=== PATIENT | female | born 1990 | race African-American/Black ===

== ENCOUNTER 2021-01-16 18:15 | Emergency (ER) | payer BC, SELFPAY ==
--- NOTE | ~2021-01-16 | CT_ITS ---
EXAMINATION: CT abdomen pelvis w con DATE: 01/16/2021 20:32 INDICATION: Abdominal pain for 4 days TECHNIQUE: Computed tomography (CT) of the abdomen and pelvis was performed with 100 cc Omnipaque 350 intravenous contrast. The dose-length product was 165.45 mGy-cm. Automated exposure control and iter ative reconstruction technique were employed. COMPARISON: None. FINDINGS: Lung bases unremarkable. Heart size normal. No significant vascular abnormality. No lymphad enopathy. The liver, spleen, pancreas, adrenal glands and kidneys are unremarkable. Gallbladder is present. Non obstructive bowel gas pattern. No free air. Moderate free fluid in the pelvis. There is an IUD in exp ected position. The uterus appears enlarged and hypovascular there are small left ovarian cysts, larg est measuring 1.9 cm. No evidence for abscess. No acute osseous abnormality. IMPRESSION: 1. Enlarged heterogeneous hypovascular uterus containing IUD in expected position. Moderate free flui d in the pelvis. Consider pelvic inflammatory disease in the appropriate clinical setting. No abscess identified. 2: Left ovarian cysts, largest measuring 1.9 cm. Reviewed, dictated and finalized at location A. [facility] IMPRESSION: 1. Enlarged heterogeneous hypovascular uterus containing IUD in expected positi on. Moderate free fluid in the pelvis. Consider pelvic inflammatory disease in the appropriate clinical setting. No abscess identified. 2: Left ovarian cysts, largest measuring 1.9 cm.
[2021-01-16 18:18] VITALS: BP 115/65; PULSE 68; RESP 14; TEMP 36.9; O2SAT 99
--- NOTE | 2021-01-16 18:30 | ED.ABDPAIN ---
HPI - Abdominal Pain General Chief Complaint: Abdominal Pain <Karla Cannon MD - Last Filed: 01/16/21 19:02> Stated Complaint: abd pain <Karla Cannon MD - Last Filed: 01/16/21 19:02> Time Seen by Provider: 01/16/21 18:21 <Karla Cannon MD - Last Filed: 01/16/21 19:02> Source: patient <Karla Cannon MD - Last Filed: 01/16/21 19:02> Mode of arrival: ambulatory <Karla Cannon MD - Last Filed: 01/16/21 19:02> Limitations: no limitations <Karla Cannon MD - Last Filed: 01/16/21 19:02> History of Present Illness HPI narrative: This is a 30 year old female who presents for evaluation of midabdominal pain. She states her pain has been constant and it has been present for 3-4 days. Her pain is worse with eating. She has associated nausea and body ache. She denies vomiting, diarrhea, fever. She denies having similar pain in the past. She has not taken anything for pain. She rates her pain 10/10. <Karla Cannon MD - Last Filed: 01/16/21 19:02> Radiation: back <Karla Cannon MD - Last Filed: 01/16/21 19:02> Related Data Home Medications: Home Medications Medication Instructions Recorded Confirmed albuterol 90 mcg INHALATION PRN 01/16/21 01/16/21 <Karla Cannon MD - Last Filed: 01/16/21 19:02> Allergies/Adverse Reactions: Allergies Allergy/AdvReac Type Severity Reaction Status Date / Time No Known Allergies Allergy Verified 01/16/21 18:16 <Karla Cannon MD - Last Filed: 01/16/21 19:02> Review of Systems Review of Systems: All systems reviewed & are unremarkable except as noted in HPI and below <Karla Cannon MD - Last Filed: 01/16/21 19:02> Constitutional: Constitutional: Denies chills and Denies fever(s) <Karla Cannon MD - Last Filed: 01/16/21 19:02> Cardiovascular: Cardiovascular: Denies chest pain <Karla Cannon MD - Last Filed: 01/16/21 19:02> Respiratory: Respiratory: Denies dyspnea <Karla Cannon MD - Last Filed: 01/16/21 19:02> Gastrointestinal: Gastrointestinal: Reports abdominal pain, Denies diarrhea, Reports nausea and Denies vomiting <Karla Cannon MD - Last Filed: 01/16/21 19:02> Musculoskeletal: Musculoskeletal: Reports back pain <Karla Cannon MD - Last Filed: 01/16/21 19:02> [facility] Past Medical History Medical History: Medical History (Updated 01/16/21 @ 19:02 by Karla Cannon MD) Asthma <Karla Cannon MD - Last Filed: 01/16/21 19:02> Surgical History Surgical History: Surgical History (Updated 01/16/21 @ 18:30 by Karla Cannon MD) No significant past surgical history <Karla Cannon MD - Last Filed: 01/16/21 19:02> Social History Social History: Social History (Updated 01/16/21 @ 18:30 by Karla Cannon MD) Alcohol use details: occasional Gender identity (if verbalized by the patient): Female <Karla Cannon MD - Last Filed: 01/16/21 19:02> Exam Const: General: alert <Karla Cannon MD - Last Filed: 01/16/21 19:02> Orientation/consciousness: patient oriented x3 <Karla Cannon MD - Last Filed: 01/16/21 19:02> Eyes: EOM: EOMs intact bilaterally <Karla Cannon MD - Last Filed: 01/16/21 19:02> Chest: Chest palpation & inspection: normal inspection of the chest <Karla Cannon MD - Last Filed: 01/16/21 19:02> Resp: Effort & Inspection: normal respiratory effort and no retractions <Karla Cannon MD - Last Filed: 01/16/21 19:02> Auscultation: clear to auscultation bilaterally <Karla Cannon MD - Last Filed: 01/16/21 19:02> Cardio: Rate: regular rate <Karla Cannon MD - Last Filed: 01/16/21 19:02> Rhythm: regular rhythm <Karla Cannon MD - Last Filed: 01/16/21 19:02> Heart sounds: no murmurs <Karla Cannon MD - Last Filed: 01/16/21 19:02> GI: GI Palp: Yes Soft to palpation, Yes Tenderness to palpation present (GI) (epigastric, periumbilic
[2021-01-16 18:45] LABS: Add Urine Microscopic? YES; Amorphous Sediment Urine Few; Appearance Urine Cloudy (Clear); Bacteria Urine Trace /hpf; Bilirubin Urine Negative (Negative); Blood Urine Negative (Negative); Color Urine Yellow (Yellow); Glucose Urine UA Negative (Negative); Ketones Urine 2+ mg/dL (Negative); Leukocyte Esterase Ur Negative LEU/UL (Negative); Mucus Urine Heavy /lpf; Nitrate Urine Negative (Negative); Protein Urine 1+ mg/dL (Negative); RBC Urine 0-2 /hpf (0-2); Specific Grav Ur 1.026 (1.001-1.035); Squamous Epithelial Cell Urine Many /hpf (Few); Urobilinogen Urine Negative mg/dL (<2.0); WBC Urine 0-3 /hpf
[2021-01-16 19:00] LABS: Basophils Percent Auto 0.4 % (0.2-1.2); Eosinophils Absolute Auto 0.1 K/mm3 (0-0.3); Eosinophils Percent Auto 1.3 % (0-4.4); Hematocrit 38.9 % (37.0-47.0); Hemoglobin 13.2 g/dL (12.0-15.0); Immature Granulocyte Absolute 0.01 K/mm3 (0.00-0.031); Immature Granulocyte Percent A 0.2 % (0-0.5); Lymphocytes Absolute Auto 1.03 K/mm3 (0.9-3.2); Lymphocytes Percent Auto 18.5 % (18.3-44.2); Mean Corpuscular HGB Conc 33.9 g/dl (32-36); Mean Corpuscular Hemoglobin 31.5 pg (26-34); Mean Corpuscular Volume 92.8 fl (80-100); Mean Platelet Volume 9.1 fl (7.4-10.4); Monocytes Absolute Auto 0.4 K/mm3 (0.1-0.6); Neutrophils Percent Auto 72.6 % (45.5-73.1); Platelet Count Result 179 k/mm3 (150-375); Red Blood Count 4.19 M/mm3 (4.2-5.4); Red Cell Distribution Width 11.9 % (11.5-14.5); White Blood Count 5.6 K/mm3 (4.5-10.0)
[2021-01-16] MEDS: KETOROLAC 15 MG/ML VIAL (*BKC) IV PUSH (19:01)
[2021-01-16] MEDS: ONDANSETRON INJ 4 MG/2 ML VIAL IV PUSH (19:01)
[2021-01-16 19:13] LABS: Alanine Aminotransferase 16 U/L (4-35); Albumin Level 4.1 g/dL (3.5-5.1); Alkaline Phosphatase 42 U/L (38-126); Anion Gap 4 mmol/L (8-16); Aspartate Amino Transferase 26 U/L (14-36); Bilirubin,Total 0.6 mg/dL (0.2-1.3); Blood Urea Nitrogen 12 mg/dL (7-17); Calcium 8.7 mg/dL (8.4-10.2); Carbon Dioxide 26 mmol/L (22-30); Chloride 109 mmol/L (98-107); Estimated CRCL calculation 85 ml/min; Estimated Glomerular Filt Rate > 60; Glucose 88 mg/dL (65-105); Lipase 30 U/L (23-300); Potassium 3.8 mmol/L (3.4-5.0); Sodium 139 mmol/L (137-145)
[2021-01-16 21:06] VITALS: BP 112/63; PULSE 65; RESP 16; TEMP 36.3; O2SAT 100
== END 2021-01-16 21:07 | disposition home or self-care (01) ==
PROVIDERS: Emergency Medicine; Emergency Provider Emergency Medicine
DX: R10.13 Epigastric pain (principal); J45.909 Unspecified asthma, uncomplicated; Z97.5 Presence of (intrauterine) contraceptive device; N83.202 Unspecified ovarian cyst, left side
CPT/HCPCS: 36415; 74177; 80053; 81001; 81025; 83690; 85025; 96374; 96375; 99284; J1885; J2405; Q9967

== ENCOUNTER 2021-02-03 08:34 | Emergency (ER) | payer BC, SELFPAY ==
[2021-02-03 08:35] VITALS: BP 101/74; PULSE 80; RESP 16; TEMP 36.1; O2SAT 100
[2021-02-03 09:08] LABS: Basophils Percent Auto 0.4 % (0.2-1.2); Eosinophils Absolute Auto 0.1 K/mm3 (0-0.3); Eosinophils Percent Auto 0.9 % (0-4.4); Hematocrit 38.5 % (37.0-47.0); Hemoglobin 13.1 g/dL (12.0-15.0); Lymphocytes Absolute Auto 1.76 K/mm3 (0.9-3.2); Lymphocytes Percent Auto 32.5 % (18.3-44.2); Mean Corpuscular Hemoglobin 31.4 pg (26-34); Mean Corpuscular Volume 92.3 fl (80-100); Monocytes Absolute Auto 0.4 K/mm3 (0.1-0.6); Monocytes Percent Auto 7.9 % (2.6-8.5); Neutrophils Absolute Auto 3.2 K/mm3 (1.3-6.7); Neutrophils Percent Auto 58.3 % (45.5-73.1); Platelet Count Result 205 k/mm3 (150-375); Red Blood Count 4.17 M/mm3 (4.2-5.4); Red Cell Distribution Width 11.9 % (11.5-14.5); White Blood Count 5.4 K/mm3 (4.5-10.0)
[2021-02-03 09:12] LABS: Add Urine Microscopic? YES; Appearance Urine Cloudy (Clear); Bacteria Urine Trace /hpf; Bilirubin Urine Negative (Negative); Blood Urine Negative (Negative); Color Urine Amber (Yellow); Glucose Urine UA Negative (Negative); Ketones Urine Trace mg/dL (Negative); Leukocyte Esterase Ur Trace LEU/UL (Negative); Mucus Urine Heavy /lpf; Nitrate Urine Negative (Negative); Protein Urine 1+ mg/dL (Negative); Specific Grav Ur 1.023 (1.001-1.035); Squamous Epithelial Cell Urine Many /hpf (Few); Urobilinogen Urine Negative mg/dL (<2.0); WBC Urine 0-3 /hpf
[2021-02-03 09:23] LABS: Alanine Aminotransferase 10 U/L (4-35); Albumin Level 4.4 g/dL (3.5-5.1); Alkaline Phosphatase 43 U/L (38-126); Anion Gap 6 mmol/L (8-16); Aspartate Amino Transferase 21 U/L (14-36); Bilirubin,Total 0.7 mg/dL (0.2-1.3); Blood Urea Nitrogen 8 mg/dL (7-17); Calcium 9.2 mg/dL (8.4-10.2); Carbon Dioxide 30 mmol/L (22-30); Chloride 105 mmol/L (98-107); Estimated CRCL calculation 83 ml/min; Estimated Glomerular Filt Rate > 60; Glucose 95 mg/dL (65-105); Lipase 30 U/L (23-300); Potassium 3.2 mmol/L (3.4-5.0); Sodium 141 mmol/L (137-145)
--- NOTE | 2021-02-03 09:52 | ED.NAVMDI ---
HPI - Nausea/Vomiting/Diarrhea General Chief complaint: Nausea/Vomiting/Diarrhea Stated complaint: NAUSEA FROM ABX Time Seen by Provider: 02/03/21 09:05 Source: patient Mode of arrival: ambulatory Limitations: no limitations History of Present Illness HPI Narrative: This is a 30-year-old female that presents the emergency department for nausea and vomiting x4 days. Reports she has been on antibiotics for BV and these have caused her to be very nauseous. Reports he has had several episodes of diarrhea as well. Denies fever, abdominal pain, or dysuria. Related Data Home Medications Medication Instructions Recorded Confirmed albuterol 90 mcg INHALATION PRN 01/16/21 01/16/21 albuterol sulfate INHALATION 02/03/21 02/03/21 bupropion HCl mg PO 02/03/21 doxycycline hyclate 02/03/21 fluticasone propion-salmeterol INHALATION 02/03/21 [Wixela Inhub] Allergies Allergy/AdvReac Type Severity Reaction Status Date / Time No Known Allergies Allergy Verified 02/03/21 08:54 Review of Systems Review of Systems: Narrative: CONSTITUTIONAL: Denies fever GASTROINTESTINAL: Reports nausea vomiting and diarrhea. Denies abdominal pain GENITOURINARY: Denies dysuria or hematuria. SKIN: Denies rash All systems reviewed & are unremarkable except as noted in HPI and below PMFSH Past Medical History Medical History (Updated 02/03/21 @ 12:00 by Mya Brown PA-C) Asthma Surgical History Surgical History (Updated 01/16/21 @ 18:30 by Karla Cannon MD) No significant past surgical history Social History Social History (Updated 01/16/21 @ 18:30 by Karla Cannon MD) Gender identity (if verbalized by the patient): Female Exam Narrative: Exam Narrative: GENERAL: Well-appearing, well-nourished, and in no acute distress. HEAD: Normocephalic, atraumatic. EYES: EOMI. CHEST: Clear to auscultation. No respiratory distress. No wheezes rales or rhonchi HEART: Regular rate and rhythm. No murmur heard. Normal peripheral pulses. ABDOMEN: Soft, nontender, nondistended, normal active bowel sounds. EXTREMITIES: Normal range of motion. No edema. SKIN: Warm, dry, no rash. NEURO: No focal deficits. Alert and oriented x3. PSYCH: Normal mood and affect Course Consultations Consultation #1: Spoke with patient's primary about work-up. Reports she was being treated for BV. Also was empirically treating for PID. Patient had been given a dose of Rocephin and is to continue doxycycline. Would like patient to obtain the outpatient labs that she ordered and will follow up with her in clinic later this week. Date: 02/03/21 Time: 11:59 Vital Signs Vital signs: Vital Signs Temperature 97 F L 02/03/21 08:35 Pulse Rate 80 02/03/21 08:35 Respiratory Rate 16 02/03/21 08:35 Blood Pressure 101/74 02/03/21 08:35 Pulse Oximetry 100 02/03/21 08:35 Temperature 97 F L 02/03/21 08:35 Pulse Rate 80 02/03/21 08:35 Respiratory Rate 16 02/03/21 08:35 Blood Pressure 101/74 02/03/21 08:35 Pulse Oximetry 100 02/03/21 08:35 MDM - Nausea/Vomiting/Diarrhea MDM Narrative Medical decision making narrative: Patient presents the emergency department for adverse side effects of medication. Was started on metronidazole for BV. Reports this has been making her very nauseous and she had several episodes of vomiting which prompted her to be seen. She is afebrile and nontoxic-appearing. Abdominal exam is benign. CBC is without leukocytosis. Metabolic panel with mild hypokalemia, otherwise no concerning findings. Lipase is normal. UA without overt evidence of infection. I will send this for a culture. Bedside test is negative. Patient hydrated and given dose of Zofran with relief. Able to tolerate p.o. challenge. Given a dose of potassium in the ED. Spoke with patient's primary about work-up. Reports she was being treated for BV. Also was empirically treating for PID. Patient had been given a dose of Ro
[2021-02-03] MEDS: ONDANSETRON INJ 4 MG/2 ML VIAL IV PUSH (10:20)
[2021-02-03] MEDS: SODIUM CHLORIDE 0.9% IV 1,000 ML 999 ML IV CONT (10:20)
[2021-02-03] MEDS: POTASSIUM CHLORIDE 20 MEQ TABLET 40 MEQ PO (11:20)
[2021-02-03 12:10] VITALS: BP 132/78; PULSE 76; RESP 18; O2SAT 99
== END 2021-02-03 12:11 | disposition home or self-care (01) ==
PROVIDERS: Emergency Provider Emergency Medicine; PCP Physician Assistant
DX: R11.2 Nausea with vomiting, unspecified (principal); J45.909 Unspecified asthma, uncomplicated
CPT/HCPCS: 36415; 80053; 81001; 81025; 83690; 85025; 87086; 87088; 96361; 96374; 99284; A9270; J2405; J7030